=== PATIENT | male | born 1945 | race Hispanic/Latino ===

== ENCOUNTER 2020-06-20 11:01 | Inpatient (IN) | payer MEDICARE, OTHER ==
[~2020-06-20] VITALS: Ht 170.2 cm; Wt 90.7 kg
[2020-06-20 13:28] LABS: BASOPHILS # (AUTO) 0.1 (0.0-0.1); BASOPHILS % 0.5 % (0.0-1.0); EOSINOPHILS # (AUTO) 0.1 (0.0-0.4); EOSINOPHILS % 0.6 % (0.0-6.0); HEMATOCRIT 36.9 % (38.2-49.6); HEMOGLOBIN 11.6 g/dL (14.0-18.0); LYMPHOCYTES # (AUTO) 1.2 (1.0-3.2); LYMPHOCYTES % 10.4 % (18.0-39.1); MEAN CORPUSCULAR HEMOGLOBIN 29.7 pg (28-32); MEAN CORPUSCULAR HGB CONC 31.4 g/dL (31-35); MEAN CORPUSCULAR VOLUME 94.4 fL (81-99); MONOCYTES # (AUTO) 0.7 (0.2-0.8); NEUTROPHILS # (AUTO) 9.5 (2.1-6.9); PLATELET COUNT 259 x10e3/uL (140-360); RED BLOOD COUNT 3.91 x10e6/uL (4.3-5.7); RED CELL DISTRIBUTION WIDTH 14.2 % (11.7-14.4)
[2020-06-20] MEDS ORDERED: CEFTRIAXONE SOD 1 GM/NS 50 ML 50 ML IV ONE (13:30)
[2020-06-20 15:02] LABS: INR 1.04; PARTIAL THROMBOPLASTIN TIME 30.6 seconds (23.8-35.5); PROTHROMBIN TIME 14.3 seconds (11.9-14.5)
[2020-06-20 15:37] LABS: ALBUMIN 3.4 g/dL (3.5-5.0); ALBUMIN/GLOBULIN RATIO 0.8 (0.8-2.0); ANION GAP 17.8 mmol/L (8-16); CALCIUM 9.1 mg/dL (8.4-10.2); CREATININE, SERUM 4.77 mg/dL (0.72-1.25); MAGNESIUM 2.2 MG/DL (1.3-2.1); POTASSIUM 4.8 mmol/L (3.5-5.1)
[2020-06-20] MEDS ORDERED: DEXTROSE 50% SYRINGE 50 ML IV PRN (16:30)
[2020-06-20] MEDS ORDERED: FUROSEMIDE INJ 10 MG/ML 10 ML VIAL IV ONE (16:30)
[2020-06-20] MEDS ORDERED: FUROSEMIDE INJ 100 MG in SODIUM CHLORIDE 0.9% 90 ML IV ONE (17:00)
[2020-06-20 17:31] LABS: CREATINE KINASE MB 4.9 ng/mL (0-5.0)
[2020-06-20] MEDS ORDERED: ASPIRIN 325 MG TAB PO ONE (18:30)
[2020-06-20] MEDS ORDERED: ONDANSETRON HCL INJ 2MG/ML 2ML 2 MG/ML VIAL IV PRN (18:30)
[2020-06-20] MEDS ORDERED: BENZONATATE 100 MG CAP PO PRN (18:30)
[2020-06-20] MEDS ORDERED: ACETAMINOPHEN 325 MG TAB PO PRN (18:30)
[2020-06-20] MEDS ORDERED: HYDRALAZINE HCL 20 MG/ML VIAL IV PRN (18:30)
[2020-06-20] MEDS ORDERED: ONDANSETRON HCL 4 MG ORAL DISINTEGRATING TAB PO PRN (18:30)
[2020-06-20] MEDS: AZITHROMYCIN 500MG/NS 250 ML 250 ML IV SCH (19:25)
[2020-06-20 19:42] LABS: CREATINE KINASE MB 4.8 ng/mL (0-5.0)
[2020-06-20] MEDS: INSULIN LISPRO 100 UNIT/1 ML 3ML VIAL SQ SCH ×2 (19:44→21:50)
[2020-06-20] MEDS: HEPARIN SOD (PORCINE) 5,000 UNIT/ML VIAL SC SCH (21:49)
[2020-06-20 23:11] VITALS: BP 129/72
[2020-06-20] MEDS ORDERED: SODIUM CHLORIDE 0.9% 1000ML 2,000 ML ONE (23:44)
[2020-06-21] VITALS (7 sets, daily range): BP systolic 124–153; BP diastolic 64–75
[2020-06-21 00:55] LABS: CREATINE KINASE MB 4.6 ng/mL (0-5.0)
[2020-06-21 05:43] LABS: BASOPHILS # (AUTO) 0.1 (0.0-0.1); BASOPHILS % 0.7 % (0.0-1.0); EOSINOPHILS # (AUTO) 0.1 (0.0-0.4); EOSINOPHILS % 1.2 % (0.0-6.0); HEMATOCRIT 34.4 % (38.2-49.6); HEMOGLOBIN 10.5 g/dL (14.0-18.0); LYMPHOCYTES # (AUTO) 1.2 (1.0-3.2); LYMPHOCYTES % 15.5 % (18.0-39.1); MEAN CORPUSCULAR HEMOGLOBIN 29.5 pg (28-32); MEAN CORPUSCULAR HGB CONC 30.5 g/dL (31-35); MEAN CORPUSCULAR VOLUME 96.6 fL (81-99); MONOCYTES # (AUTO) 0.5 (0.2-0.8); MONOCYTES % 6.7 % (4.4-11.3); NEUTROPHILS % 75.4 % (38.7-80.0); PLATELET COUNT 249 x10e3/uL (140-360); RED BLOOD COUNT 3.56 x10e6/uL (4.3-5.7); RED CELL DISTRIBUTION WIDTH 13.9 % (11.7-14.4)
[2020-06-21 06:01] LABS: ALBUMIN 2.9 g/dL (3.5-5.0); ALBUMIN/GLOBULIN RATIO 0.7 (0.8-2.0); ANION GAP 15.5 mmol/L (8-16); CALCIUM 8.3 mg/dL (8.4-10.2); CREATININE, SERUM 3.59 mg/dL (0.72-1.25); POTASSIUM 4.5 mmol/L (3.5-5.1)
[2020-06-21 06:04] LABS: CHOL/HDL RATIO 2.8 (3.9-4.7)
[2020-06-21 06:46] LABS: CREATINE KINASE MB 4.3 ng/mL (0-5.0)
[2020-06-21] MEDS: INSULIN LISPRO 100 UNIT/1 ML 3ML VIAL SQ SCH ×4 (07:30→21:00)
[2020-06-21] MEDS: FAMOTIDINE 20 MG TAB PO SCH ×2 (08:25→17:00)
[2020-06-21] MEDS: ASPIRIN 325 MG TAB PO SCH (08:26)
[2020-06-21] MEDS: CEFTRIAXONE SOD 1 GM/NS 50 ML 50 ML IV SCH (08:26)
[2020-06-21] MEDS: HEPARIN SOD (PORCINE) 5,000 UNIT/ML VIAL SC SCH ×2 (08:31→21:00)
[2020-06-21] MEDS ORDERED: HEPARIN SOD (PORCINE) 5,000 UNIT/ML VIAL IV ONE (10:00)
[2020-06-21] MEDS ORDERED: CLOPIDOGREL BISULFATE 75 MG TAB PO ONE (10:00)
[2020-06-21] MEDS: FUROSEMIDE INJ 10 MG/ML 4 ML VIAL IV SCH ×2 (10:37→22:30)
[2020-06-21] MEDS: HEPARIN 25,000 UNIT 900 UNIT in DEXTROSE 5% 250ML 250 ML IV SCH (12:44)
[2020-06-21] MEDS: METOPROLOL TARTRATE 25 MG TAB PO SCH (17:47)
[2020-06-21] MEDS: AZITHROMYCIN 500MG/NS 250 ML 250 ML IV SCH (17:49)
[2020-06-21] MEDS ORDERED: CYCLOBENZAPRINE10 MG PO (21:28)
[2020-06-21] MEDS ORDERED: RENAGEL800 MG PO ×2 (21:28)
[2020-06-21] MEDS ORDERED: OMEGA-31000 MG PO (21:33)
[2020-06-21] MEDS ORDERED: GABAPENTIN300 MG PO (21:33)
[2020-06-21] MEDS ORDERED: ARICEPT5 MG PO (21:33)
[2020-06-21] MEDS ORDERED: ATORVASTATIN CA40 MG PO (21:33)
[2020-06-21] MEDS ORDERED: AMLODIPINE BESYL5 MG PO (21:33)
[2020-06-21] MEDS ORDERED: TRADJENTA5 MG PO (21:33)
[2020-06-21] MEDS ORDERED: LISINOPRIL5 MG PO (21:33)
[2020-06-21] MEDS ORDERED: ZETIA10 MG PO (21:33)
[2020-06-21] MEDS ORDERED: CYCLOBENZAPRIN7.5 MG PO (21:35)
[2020-06-21] MEDS: ATORVASTATIN 40 MG TAB PO SCH (22:30)
[2020-06-22] VITALS (9 sets, daily range): BP systolic 113–170; BP diastolic 61–77
[2020-06-22] MEDS: INSULIN LISPRO 100 UNIT/1 ML 3ML VIAL SQ SCH ×4 (07:30→21:00)
[2020-06-22] MEDS: HEPARIN SOD (PORCINE) 5,000 UNIT/ML VIAL SC SCH (09:00)
[2020-06-22] MEDS ORDERED: REGADENOSON 0.4 MG/5 ML SYR IV ONE (09:06)
[2020-06-22] MEDS ORDERED: SODIUM CHLORIDE 0.9% 1000ML 2,000 ML ONE (10:27)
[2020-06-22] MEDS: FAMOTIDINE 20 MG TAB PO SCH ×2 (11:14→16:52)
[2020-06-22] MEDS: CLOPIDOGREL BISULFATE 75 MG TAB PO SCH (11:14)
[2020-06-22] MEDS: FUROSEMIDE INJ 10 MG/ML 4 ML VIAL IV SCH ×2 (11:14→21:00)
[2020-06-22] MEDS: ASPIRIN 325 MG TAB PO SCH (11:14)
[2020-06-22] MEDS: CEFTRIAXONE SOD 1 GM/NS 50 ML 50 ML IV SCH (11:14)
[2020-06-22] MEDS: METOPROLOL TARTRATE 25 MG TAB PO SCH ×2 (11:15→16:53)
[2020-06-22] MEDS ORDERED: HEPARIN 25,000 UNIT DRIP IV ONE (11:49)
[2020-06-22] MEDS: HEPARIN 25,000 UNIT 900 UNIT in DEXTROSE 5% 250ML 250 ML IV SCH (12:10)
[2020-06-22] MEDS: AZITHROMYCIN 500MG/NS 250 ML 250 ML IV SCH (17:46)
[2020-06-22] MEDS: ATORVASTATIN 40 MG TAB PO SCH (21:00)
[2020-06-23] VITALS (11 sets, daily range): BP systolic 105–148; BP diastolic 44–72
[2020-06-23] MEDS: INSULIN LISPRO 100 UNIT/1 ML 3ML VIAL SQ SCH ×4 (07:30→21:00)
[2020-06-23] MEDS: FAMOTIDINE 20 MG TAB PO SCH ×2 (07:30→16:30)
[2020-06-23] MEDS: CEFTRIAXONE SOD 1 GM/NS 50 ML 50 ML IV SCH (08:09)
[2020-06-23] MEDS: FUROSEMIDE INJ 10 MG/ML 4 ML VIAL IV SCH ×2 (08:10→21:22)
[2020-06-23] MEDS: METOPROLOL TARTRATE 25 MG TAB PO SCH ×2 (08:10→17:00)
[2020-06-23] MEDS: ASPIRIN 325 MG TAB PO SCH (08:10)
[2020-06-23] MEDS: CLOPIDOGREL BISULFATE 75 MG TAB PO SCH (08:11)
[2020-06-23] MEDS ORDERED: FENTANYL CITRATE/PF 100MCG/2 ML INJ ONE (08:26)
[2020-06-23] MEDS ORDERED: LIDOCAINE HCL 2% LOCAL 20 ML VIAL ONE (08:26)
[2020-06-23] MEDS ORDERED: MIDAZOLAM HCL 2 MG/2 ML VIAL ONE (08:26)
[2020-06-23] MEDS ORDERED: HEPARIN SOD/SOD CHLORIDE 2,000 ML ONE (08:27)
[2020-06-23] MEDS ORDERED: SODIUM CHLORIDE 0.9% 1000ML 1,000 ML ONE (08:27)
[2020-06-23] MEDS ORDERED: IOPAMIDOL 370 MG/ML 200 ML INFUS..BTL INJ ONE (08:27)
[2020-06-23] MEDS: HEPARIN 25,000 UNIT 900 UNIT in DEXTROSE 5% 250ML 250 ML IV SCH (10:00)
[2020-06-23 15:01] LABS: BASOPHILS # (AUTO) 0.1 (0.0-0.1); BASOPHILS % 0.6 % (0.0-1.0); EOSINOPHILS % 0.3 % (0.0-6.0); HEMATOCRIT 35.3 % (38.2-49.6); HEMOGLOBIN 10.7 g/dL (14.0-18.0); LYMPHOCYTES # (AUTO) 1.1 (1.0-3.2); LYMPHOCYTES % 11.3 % (18.0-39.1); MEAN CORPUSCULAR HEMOGLOBIN 30.1 pg (28-32); MEAN CORPUSCULAR HGB CONC 30.3 g/dL (31-35); MEAN CORPUSCULAR VOLUME 99.2 fL (81-99); MONOCYTES # (AUTO) 0.6 (0.2-0.8); MONOCYTES % 6.3 % (4.4-11.3); NEUTROPHILS % 80.6 % (38.7-80.0); PLATELET COUNT 257 x10e3/uL (140-360); RED BLOOD COUNT 3.56 x10e6/uL (4.3-5.7); RED CELL DISTRIBUTION WIDTH 13.8 % (11.7-14.4)
[2020-06-23 15:21] LABS: ALBUMIN 3.2 g/dL (3.5-5.0); ALBUMIN/GLOBULIN RATIO 0.9 (0.8-2.0); ANION GAP 23.1 mmol/L (8-16); CALCIUM 8.1 mg/dL (8.4-10.2); CREATININE, SERUM 4.89 mg/dL (0.72-1.25); MAGNESIUM 2.1 MG/DL (1.3-2.1); PHOSPHORUS 6.7 MG/DL (2.3-4.7)
[2020-06-23 15:25] LABS: POTASSIUM 6.1 mmol/L (3.5-5.1)
[2020-06-23] MEDS: AZITHROMYCIN 500MG/NS 250 ML 250 ML IV SCH (18:03)
[2020-06-23] MEDS: ATORVASTATIN 40 MG TAB PO SCH (21:22)
[2020-06-24] VITALS (7 sets, daily range): BP systolic 116–154; BP diastolic 42–67
[2020-06-24] MEDS: FAMOTIDINE 20 MG TAB PO SCH ×2 (07:30→15:42)
[2020-06-24] MEDS: INSULIN LISPRO 100 UNIT/1 ML 3ML VIAL SQ SCH ×4 (07:30→20:24)
[2020-06-24] MEDS ORDERED: SODIUM CHLORIDE 0.9% 1000ML 2,000 ML ONE (08:31)
[2020-06-24] MEDS: METOPROLOL TARTRATE 25 MG TAB PO SCH ×2 (09:00→16:55)
[2020-06-24] MEDS: FUROSEMIDE INJ 10 MG/ML 4 ML VIAL IV SCH ×2 (09:00→20:22)
[2020-06-24 09:49] LABS: PHOSPHORUS 4.4 MG/DL (2.3-4.7)
[2020-06-24 09:57] LABS: ANION GAP 16.2 mmol/L (8-16); CALCIUM 8.4 mg/dL (8.4-10.2); CREATININE, SERUM 3.55 mg/dL (0.72-1.25); POTASSIUM 4.2 mmol/L (3.5-5.1)
[2020-06-24] MEDS: CLOPIDOGREL BISULFATE 75 MG TAB PO SCH (15:41)
[2020-06-24] MEDS: CEFTRIAXONE SOD 1 GM/NS 50 ML 50 ML IV SCH (15:41)
[2020-06-24] MEDS: ASPIRIN 325 MG TAB PO SCH (15:41)
[2020-06-24] MEDS: AZITHROMYCIN 500MG/NS 250 ML 250 ML IV SCH (16:55)
[2020-06-24] MEDS: ATORVASTATIN 40 MG TAB PO SCH (20:22)
[2020-06-25 00:05] VITALS: BP 131/60
[2020-06-25 04:59] VITALS: BP 140/67
[2020-06-25 08:03] VITALS: BP 163/75
[2020-06-25 08:05] VITALS: BP 163/75
[2020-06-25] MEDS: INSULIN LISPRO 100 UNIT/1 ML 3ML VIAL SQ SCH ×3 (08:30→16:30)
[2020-06-25] MEDS: FAMOTIDINE 20 MG TAB PO SCH ×2 (08:30→16:08)
[2020-06-25] MEDS: ASPIRIN 325 MG TAB PO SCH (08:35)
[2020-06-25] MEDS: CLOPIDOGREL BISULFATE 75 MG TAB PO SCH (08:36)
[2020-06-25] MEDS: METOPROLOL TARTRATE 25 MG TAB PO SCH ×2 (08:36→16:08)
[2020-06-25] MEDS: FUROSEMIDE INJ 10 MG/ML 4 ML VIAL IV SCH (08:37)
[2020-06-25] MEDS: CEFTRIAXONE SOD 1 GM/NS 50 ML 50 ML IV SCH (08:39)
[2020-06-25] MEDS ORDERED: SODIUM CHLORIDE 0.9% 250ML 250 ML ONE (08:51)
[2020-06-25 12:00] VITALS: BP 138/63
[2020-06-25] MEDS ORDERED: ONDANSETRON HCL 4 MG ORAL DISINTEGRATING TAB PO PRN (12:45)
[2020-06-25] MEDS: AZITHROMYCIN 500MG/NS 250 ML 250 ML IV SCH (16:13)
[2020-06-25] MEDS ORDERED: METOPROLOL TART50 MG PO (16:56)
[2020-06-25] MEDS ORDERED: TESSALON PERLE100 MG PO (16:57)
[2020-06-25] MEDS ORDERED: AUGMENTIN 875-1 EACH PO (16:57)
[2020-06-25] MEDS ORDERED: FUROSEMIDE40 MG PO (16:57)
[2020-06-26] MEDS ORDERED: BALSAM PERU/CASTOR OIL 60 GM OINT...G. TP SCH (09:00)
== END 2020-06-25 18:00 | disposition home health service (06) | DRG 280 ==
LOC: ER 11:17 → ERHOLD 16:18 → MED/SURG 22:47
PROVIDERS: ADMIT Internal Medicine; ATTEND Internal Medicine
PROC: 5A1D70Z Performance of Urinary Filtration, Intermittent, Less than 6 Hours Per Day (ICD-10-PCS; principal; 2020-06-20)
PROC: 4A023N7 Measurement of Cardiac Sampling and Pressure, Left Heart, Percutaneous Approach (ICD-10-PCS; 2020-06-23)
PROC: B2111ZZ Fluoroscopy of Multiple Coronary Arteries using Low Osmolar Contrast (ICD-10-PCS; 2020-06-23)
PROC: B2131ZZ Fluoroscopy of Multiple Coronary Artery Bypass Grafts using Low Osmolar Contrast (ICD-10-PCS; 2020-06-23)
PROC: B2151ZZ Fluoroscopy of Left Heart using Low Osmolar Contrast (ICD-10-PCS; 2020-06-23)
DX: I21.4 Non-ST elevation (NSTEMI) myocardial infarction (principal); N18.6 End stage renal disease; J18.9 Pneumonia, unspecified organism; J18.1 Lobar pneumonia, unspecified organism; I50.33 Acute on chronic diastolic (congestive) heart failure; I13.2 Hypertensive heart and chronic kidney disease with heart failure and with stage 5 chronic kidney disease, or end stage renal disease; Z99.2 Dependence on renal dialysis; I25.10 Atherosclerotic heart disease of native coronary artery without angina pectoris; Z95.1 Presence of aortocoronary bypass graft; E78.5 Hyperlipidemia, unspecified; Z20.822 Contact with and (suspected) exposure to COVID-19; D63.1 Anemia in chronic kidney disease; L89.152 Pressure ulcer of sacral region, stage 2
CPT/HCPCS: 36415; 71045; 71250; 75605; 78452; 80048; 80053; 80061; 82550; 82553; 82948; 83735; 83880; 84100; 84484; 85025; 85610; 85730; 86704; 86706; 87040; 87340; 90962; 93005; 93017; 93306; 93461; 96372; 99152; 99153; 99251; 99284; A9502; C1751; C1766; C1769; C1887; J0456; J0696; J1644; J1940; J2001; J2250; J3010; J7030; J7050; Q9967; U0002